=== PATIENT | male | born 1955 | race Caucasian/White ===

== ENCOUNTER 2019-01-16 11:25 | Emergency (ER) | payer OTHER ==
[~2019-01-16] VITALS: Ht 177.8 cm; Wt 94.8 kg
[2019-01-16] MEDS ORDERED: dexamethasone sod phosphate 10mg/ml inj IV STA (12:45)
[2019-01-16 12:58] LABS: BASOPHILS # (AUTO) 0.1 X10'3 (0-0.2); BASOPHILS % (AUTO) 0.9 % (0-1); EOSINOPHILS # (AUTO) 0.2 X10'3 (0-0.9); EOSINOPHILS % (AUTO) 2.8 % (0-6); HEMOGLOBIN 14.6 g/dl (14.0-17.9); LYMPHOCYTES # (AUTO) 1.6 X10'3 (1.1-4.8); MEAN CORPUSCULAR HEMOGLOBIN 31.1 PG (27.0-31.0); MEAN CORPUSCULAR HGB CONC 33.3 g/dL (33.0-36.5); MEAN CORPUSCULAR VOLUME 93.5 FL (78-98); MEAN PLATELET VOLUME 10.5 FL (7.4-10.4); MONOCYTES # (AUTO) 0.7 X10'3 (0-0.9); NEUTROPHILS # (AUTO) 6.1 X10'3 (1.8-7.7); NEUTROPHILS % (AUTO) 70.3 % (42-75); PLATELET COUNT 257 X10'3 (140-440); RED BLOOD COUNT 4.71 X10'6 (4.70-6.10); RED CELL DISTRIBUTION WIDTH 14.6 % (11.5-14.5); WHITE BLOOD COUNT 8.7 X10'3 (4.5-11.0)
[2019-01-16 14:06] LABS: ALANINE AMINOTRANSFERASE 26 U/L (12-78); ALBUMIN 3.7 G/DL (3.4-5.0); ALBUMIN/GLOBULIN RATIO 0.9 (1.1-1.5); ALKALINE PHOSPHATASE 104 IU/L (46-116); ANION GAP 9 (8-16); ASPARTATE AMINO TRANSFERASE 12 U/L (10-37); BILIRUBIN,TOTAL 0.3 MG/DL (0.1-1.0); BLOOD UREA NITROGEN 9 MG/DL (7-18); BUN/CREATININE RATIO 9.9 (5.4-32.0); CHLORIDE 104 MMOL/L (99-107); CREATININE 0.91 MG/DL (0.60-1.10); GLUCOSE 92 MG/DL (70-104); POTASSIUM 3.9 MMOL/L (3.5-5.1); SODIUM 138 MMOL/L (135-145); TOTAL PROTEIN 7.6 G/DL (6.4-8.2); eGFR 85 ML/MIN
[2019-01-16] MEDS ORDERED: PRED20TA PO (14:07)
[2019-01-16 14:20] VITALS: BP 118/79
== END 2019-01-16 14:24 | disposition home or self-care (01) ==
LOC: ER 11:25
DX: T78.40XA Allergy, unspecified, initial encounter (principal); R31.9 Hematuria, unspecified; F12.90 Cannabis use, unspecified, uncomplicated; Z87.891 Personal history of nicotine dependence; Z79.899 Other long term (current) drug therapy; X58.XXXA Exposure to other specified factors, initial encounter; Y93.89 Activity, other specified; Y92.89 Other specified places as the place of occurrence of the external cause; Y99.8 Other external cause status
CPT/HCPCS: 36415; 80053; 83880; 85025; 96374; 99283; J1100

== ENCOUNTER 2025-06-06 19:10 | Emergency (ER) | payer OTHER ==
[~2025-06-06] VITALS: Ht 177.8 cm; Wt 83.7 kg
--- NOTE | 2025-06-06 21:44 | Physician Documentation ---
History of Present Illness ~ Chief Complaint: Urinary Retention Stated Complaint: BLADDER PAIN Time Seen by MD: 21:08 Primary Medical Doctor: SAMAN Mode of Arrival: [facility] Patient is a very pleasant 70-year-old male that presents to the emergency department for evaluation of urinary retention times several hours. Patient reports he has a history of urinary retention. Patient has a follow up appointment with the [facility] tomorrow to be evaluated for his urinary retention this time. Patient denies any blood in his urine pain in his abdomen other than full bladder fever chills nausea vomiting diarrhea at this time. Patient denies any other symptoms at this time. Medication Reconciliation Allergies: Coded Allergies: No Known Allergies (Unverified , 01/16/19) Past Medical History Past Medical History: Hematuria Past Surgical History: noncontributory Drug Use: marijuana Lives In: Home Review of Systems ROS As stated above in the HPI, otherwise all systems are reviewed and negative. Physical Exam Vital Signs: Temperature: 98.0, Source: Oral, Heart Rate: 68, Respiratory Rate: 18, BP: 180/91, Pulse Oximetry: 94, Weight: 83.680 Oxygen Flow Rate: 0 Physical Exam VITALS: Reviewed and as above. GENERAL: Alert, no apparent distress. HEENT: Normocephalic, atraumatic, PERRL, EOMI, dry mucosa, no erythema RESPIRATORY: Lungs clear, normal breath sounds, no respiratory distress. CHEST: No accessory muscle use, no retractions CV: Regular rate, rhythm, no edema, no murmur, No: JVD GI: Soft, non-tender, bowels sounds present, no rebound, guarding, or rigidity, venous firm over the bladder but no pain other than discomfort associated with palpation over the bladder due to urinary retention. BACK: No CVA tenderness, or swelling MUSCULOSKELETAL No deformities, no edema SKIN: Warm and dry, no rash NEURO: Oriented x4, No motor or sensory deficit PSYCH: Normal mood and affect, no agitation Progress Results/Orders Results/Orders Vital Signs 06/06/25 06/06/25 19:23 19:35 Temp 98.0 Pulse 68 Resp 18 B/P (MAP) 180/91 Pulse Ox 94 O2 Flow Rate 0 Medical Decision Making Additional information obtaine: other Findings Chief Complaint: Urinary retention History of Present Illness: 70-year-old male with history of urinary retention presented to the emergency department with several hours of acute urinary retention. Patient reports scheduled follow-up appointment with [facility] tomorrow for further evaluation. Denies hematuria, fever, chills, nausea, vomiting, diarrhea, or abdominal pain beyond bladder fullness. Emergency Department Course: Macedo catheter placed with immediate drainage of 500 mL urine, consistent with acute urinary retention. Medical Decision Making: Number of Diagnoses/Management Options: Moderate complexity Acute urinary retention, likely secondary to benign prostatic hyperplasia given patient demographics (70-year-old male with history of retention) Successful bladder decompression achieved via urethral catheterization Amount/Complexity of Data: Limited Post-catheterization urine output: 500 mL No laboratory studies or imaging required for this presentation Patient denies concerning symptoms for infectious, inflammatory, or neurologic etiology Risk of Complications: Moderate Acute urinary retention is a urologic emergency requiring prompt bladder decompression Benign prostatic hyperplasia accounts for 53% of urinary retention cases in men Patient at risk for recurrent retention without definitive management Alpha-kenn therapy before trial without catheter doubles the success rate of voiding after catheter removal Assessment and Plan: Acute urinary retention - Successfully managed with Macedo catheter placement and bladder decompression Catheter to remain in place until [facility] follow-up tomorrow Duration of catheterization <3 days minimizes risk of catheter-associated complications Consider initiation of alpha-kenn (e.g., tamsulosin) to increase likelihood of successful trial without catheter Disposition - Discharge home with Macedo catheter in place Patient stable for discharge with appropriate next-day follow-up arranged [facility] follow-up tomorrow for additional diagnostics, trial without catheter, and definitive management planning Return precautions provided: fever, inability to drain urine through catheter, gross hematuria, severe pain, or other concerning symptoms Overall Risk of Morbidity/Mortality: Moderate due to acute urinary retention requiring emergency intervention, though successfully managed with catheterization and appropriate follow-up arranged. Urinary Diff Dx:Considerations: Include: AAA, Aortic dissection, Appendicitis, Appendicitis train, Bowel obstruction, Bladder outlet obstruc., Cholelithiasis, Choleangitis, Cholecystitis, DJD, Epididymitis, Hepatitis, HNP, Impaction, Musculoskeletal pain, Pancreatitis, Postoperative Comp., Prostatitis, Pyelonephritis, Renal failure, Renal infarction, Strain, Urolithiasis, Urinary Obstruction, Urethritis, Urinary retention, UTI, Other Genital Diff Dx:Considerations: Include: Abscess, Balanitis, Balanoposthitis, Cellulitis, Epididymitis, Entrapment injury, Scotty's gangrene, Foreign body, Facture penis, Hydrocele, Inguinal hernia, Post-op Complication, Paraphimosis, Prostatitis, Priapism, Syphilis, Testicular torsion, Torsion-epididymis, Torsion-appendiceal, Urinary retention, Urethritis, Urethritis-chlamydial, Urethritis-gonococcal, UTI, Other Departure Disposition: 01 HOME / SELF CARE / HOMELESS Impression: Primary Impression: Acute on chronic urinary retention Condition: Stable Additional Instructions: Your Diagnosis You came to the emergency department because you were unable to urinate (urinary retention). A catheter (thin tube) was placed into your bladder through your urethra to drain the urine. The catheter drained 500 mL of urine and will stay in place until your appointment tomorrow at the [facility]. Catheter Care at Home Keep the drainage bag below the level of your bladder at all times to allow urine to drain properly and prevent backflow Empty the drainage bag when it is half to two-thirds full, or at least every 8 hours Wash your hands before and after emptying the drainage bag Clean the area where the catheter enters your body with soap and water once daily Drink normal amounts of fluids unless told otherwise The catheter may cause some mild discomfort, but this is normal Secure the Catheter Tape the catheter tubing to your inner thigh (for men) or lower abdomen to prevent pulling or movement Avoid kinking or twisting the tubing Wear loose-fitting clothing to avoid pressure on the catheter When to Seek Immediate Medical Attention Go to the emergency department or call 911 if you experience: Fever (temperature above 100.4F or 38C) or chills No urine draining from the catheter for more than 2-3 hours Severe pain in your abdomen, back, or where the catheter enters your body Blood in your urine that is bright red or contains large clots The catheter falls out or becomes dislodged Foul-smelling urine with pus or cloudiness Confusion or feeling very ill What to Expect Small amounts of blood-tinged urine or mild burning around the catheter site can be normal in the first 24 hours You may feel the urge to urinate even with the catheter in placethis is normal The catheter will likely remain in place for less than 3 days to minimize the risk of infection and other complications Your Follow-Up Appointment When: Tomorrow at the [facility] What will happen: The healthcare team will evaluate your condition and may perform a trial without catheter (removing the catheter to see if you can urinate on your own) Medication: You may be started on a medication called an alpha-kenn before the catheter is removed, which can double your chances of being able to urinate successfully after catheter removal Do not miss this appointmenttimely follow-up is essential for proper treatment Important Reminders Do not try to remove the catheter yourself Avoid sexual activity while the catheter is in place You may shower with the catheter in place, but avoid baths Continue taking all your regular medications unless told otherwise Bring a list of all your medications to your appointment tomorrow Referrals: NO PRIMARY CARE PROVIDER (PCP) Education Educated: Patient Educated regarding: diagnosis, treatment, need for follow up Signature Scribe Signature: A Attestation: Scribed for Jerrica Horta by MYLES Shen . 06/06/25 21:46 JERRICA HORTA Jun 06, 2025 21:44
[2025-06-06 21:53] VITALS: BP 179/80; PULSE 66; RESP 20; TEMP 98.6; O2SAT 99
== END 2025-06-06 21:54 | disposition home or self-care (01) ==
LOC: ER 19:11
DX: R33.9 Retention of urine, unspecified (principal); F12.90 Cannabis use, unspecified, uncomplicated
CPT/HCPCS: 51702; 51798; 99284; A4314